=== PATIENT | male | born 1945 | race Two or more races ===

== ENCOUNTER 2020-12-26 14:24 | Outpatient (CLI) | payer OTHER | END 2020-12-26 14:36 | disposition home or self-care (01) | LOC: RAD 14:24 | PROVIDERS: ATTEND Physical Medicine & Rehabilitation | DX: M54.2 Cervicalgia (principal); M25.511 Pain in right shoulder; M54.59 Other low back pain; M16.12 Unilateral primary osteoarthritis, left hip ==

== ENCOUNTER 2022-07-17 13:45 | Outpatient (CLI) | payer OTHER | END 2022-07-17 14:01 | disposition home or self-care (01) | LOC: SONOGRAMA 13:45 | PROVIDERS: ATTEND Urology | DX: I86.1 Scrotal varices (principal); J44.1 Chronic obstructive pulmonary disease with (acute) exacerbation ==

== ENCOUNTER → 2022-07-29 | Outpatient (CLI) | payer OTHER | END | disposition home or self-care (01) | LOC: RAD 14:05 | DX: J90 Pleural effusion, not elsewhere classified (principal) ==

== ENCOUNTER 2022-08-08 10:12 | Outpatient (CLI) | payer OTHER | END 2022-08-08 10:14 | disposition home or self-care (01) | LOC: NUCLEAR 10:12 | PROVIDERS: ATTEND General Practice | DX: R60.0 Localized edema (principal) ==

== ENCOUNTER 2022-08-29 13:46 | Outpatient (CLI) | payer OTHER | END 2022-08-29 13:51 | disposition home or self-care (01) | LOC: RAD 13:46 | PROVIDERS: ATTEND General Practice | DX: E87.70 Fluid overload, unspecified (principal); J81.0 Acute pulmonary edema ==